=== PATIENT | female | born 1955 | race Two or more races ===

== ENCOUNTER 2019-11-13 07:23 | Outpatient (CLI) | payer OTHER ==
[~2019-11-13 07:23] MED LIST: CELEBREX100 MG PO; KEFLEX500 MG PO; SYNTHROID137 MCG
== END 2019-11-13 07:33 | disposition home or self-care (01) ==
LOC: RAD 07:23 → TOM 07:45
PROVIDERS: ATTEND Internal Medicine Cardiovascular Disease
DX: J44.9 Chronic obstructive pulmonary disease, unspecified (principal); J45.998 Other asthma

== ENCOUNTER 2020-09-02 09:03 | Outpatient (CLI) | payer OTHER | END 2020-09-02 15:00 | disposition home or self-care (01) | LOC: LAB 09:03 | PROVIDERS: ATTEND Obstetrics & Gynecology | DX: E78.49 Other hyperlipidemia (principal); D53.8 Other specified nutritional anemias; N39.0 Urinary tract infection, site not specified; E55.9 Vitamin D deficiency, unspecified; E78.2 Mixed hyperlipidemia; D64.89 Other specified anemias; E03.8 Other specified hypothyroidism; E78.00 Pure hypercholesterolemia, unspecified; R19.5 Other fecal abnormalities ==

== ENCOUNTER 2020-09-02 09:51 | Outpatient (CLI) | payer OTHER | END 2020-09-02 10:02 | disposition home or self-care (01) | LOC: MAMO-SONO 09:51 | PROVIDERS: ATTEND Obstetrics & Gynecology | DX: N64.59 Other signs and symptoms in breast (principal); Z12.31 Encounter for screening mammogram for malignant neoplasm of breast ==

== ENCOUNTER → 2021-01-05 06:28 | Outpatient (CLI) | payer OTHER | END | disposition home or self-care (01) | LOC: LAB 06:28 | PROVIDERS: ATTEND General Practice | DX: E03.8 Other specified hypothyroidism (principal); T80.69XA Other serum reaction due to other serum, initial encounter; N39.0 Urinary tract infection, site not specified ==

== ENCOUNTER 2021-03-08 08:19 | Outpatient (CLI) | payer OTHER | END 2021-03-08 08:37 | disposition home or self-care (01) | LOC: MRI 08:19 | PROVIDERS: ATTEND Neuromusculoskeletal Medicine & OMM | DX: M50.20 Other cervical disc displacement, unspecified cervical region (principal); M50.30 Other cervical disc degeneration, unspecified cervical region; D49.6 Neoplasm of unspecified behavior of brain; R20.2 Paresthesia of skin | CPT/HCPCS: 70553; 72141 ==

== ENCOUNTER 2021-05-24 18:07 | Emergency (ER) | payer OTHER ==
[~2021-05-24] VITALS: Ht 157.5 cm; Wt 61.2 kg
[2021-05-24] MEDS ORDERED: DICLOFENAC SODI75 MG PO (18:20)
== END 2021-05-24 18:32 | disposition home or self-care (01) ==
LOC: ER 18:07
DX: M79.671 Pain in right foot (principal)

== ENCOUNTER 2021-09-21 08:17 | Outpatient (CLI) | payer OTHER ==
[~2021-09-21 08:17] MED LIST changes: +DICLOFENAC SODI75 MG PO
== END 2021-09-21 08:18 | disposition home or self-care (01) ==
LOC: NUCLEAR 08:17
PROVIDERS: ATTEND Obstetrics & Gynecology
DX: M81.0 Age-related osteoporosis without current pathological fracture (principal)

== ENCOUNTER 2021-09-21 09:54 | Outpatient (CLI) | payer OTHER | END 2021-09-21 10:02 | disposition home or self-care (01) | LOC: MAMO-SONO 09:54 | PROVIDERS: ATTEND Obstetrics & Gynecology | DX: G62.9 Polyneuropathy, unspecified (principal); N64.4 Mastodynia ==

== ENCOUNTER 2022-05-03 07:40 | Outpatient (CLI) | payer OTHER | END 2022-05-03 07:50 | disposition home or self-care (01) | LOC: NUCLEAR 07:40 | PROVIDERS: ATTEND Internal Medicine Cardiovascular Disease | DX: G90.09 Other idiopathic peripheral autonomic neuropathy (principal) ==